=== PATIENT | female | born 1975 | race Caucasian/White ===

== ENCOUNTER 2018-10-08 16:03 | Emergency (ER) | payer SELFPAY ==
[2018-10-08 16:12] VITALS: BP 102/61
[2018-10-08] MEDS ORDERED: LIDOCAINE 1% INJ-PF (10 MG/ML) 30 ML SDV INJ ONE (17:52)
[2018-10-08] MEDS ORDERED: CEFTRIAXONE INJ 1000 MG VIAL IM ONE (17:52)
--- NOTE | 2018-10-08 17:58 | ER Document Report ---
HPI - HPI Time Seen by Provider: 10/08/18 17:36 Pain Level: 4 Notes: 43-year-old female presents to the ED for complaints of right-sided ear and headache that has been occurring intermittently for the last week, states she is recently had a cold, just moved to [place] has not been taking anything for it states the pain has become progressively worse in the ear and has caused her some dizziness as well. Patient does report some sinus congestion. Pain is 4 out of 10, throbbing achy, is not the front of her ear or TMJ. Denies any trauma to the ear. Denies history of my head denies any photosensitivity or phono sensitivity. Eating and drinking without issues. Patient is a smoker. Does not have a primary care provider that she can see for her ear pain. Denies fevers, chills, chest pain,palpitations, shortness of breath, dyspnea, nausea, vomiting, diarrhea, abdominal pain, hematuria,blurred vision, double vision, loss of vision, speech changes, LH, dizziness, syncope, headaches, wheezing, ST, URI, neck pain, weakness, bowel or bladder dysfunction, saddle anesthesia, numbness or tingling in bilateral upper or lower extremities equally, muscle paralysis, weakness in bilateral upper or lower extremities equally or rash. - REPRODUCTIVE Reproductive: DENIES: : - DERM Skin Color: Normal Past Medical History - General Information source: Patient - Social History Smoking Status: Current Every Day Smoker Family History: Reviewed & Not Pertinent Patient has suicidal ideation: No Patient has homicidal ideation: No Renal/ Medical History: Denies: Hx Peritoneal Dialysis Vertical Provider Document - CONSTITUTIONAL Agree With Documented VS: Yes Notes: PHYSICAL EXAMINATION: GENERAL: Well-appearing, well-nourished and in no acute distress. HEAD: Atraumatic, normocephalic. EYES: Pupils equal round and reactive to light, extraocular movements intact, conjunctiva are normal. ENT: Right tympanic membrane with erythema, bulging. TM intact. Right EAC without soft pain, swelling. L TM normal. nares patent, oropharynx clear without exudates. Moist mucous membranes. NECK: Normal range of motion, supple without lymphadenopathy LUNGS: Breath sounds clear to auscultation bilaterally and equal. No wheezes rales or rhonchi. HEART: Regular rate and rhythm without murmurs ABDOMEN: Soft, nontender, nondistended abdomen. No guarding, no rebound. No masses appreciated. Female : deferred Musculoskeletal: Normal range of motion, no pitting or edema. No cyanosis. NEUROLOGICAL: Cranial nerves grossly intact. Normal speech, normal gait. Normal sensory, motor exams PSYCH: Normal mood, normal affect. SKIN: Warm, Dry, normal turgor, no rashes or lesions noted. 23-like and then on the other half of a flight - INFECTION CONTROL TRAVEL OUTSIDE OF THE [place] IN LAST 30 DAYS: No Course - Re-evaluation Re-evalutation: 10/08/18 18:00 43 yr old female presents today with complaints of ear pain and headache from a URI, does not have a pcp in the area to see her. Afebrile vitals stable no distress presentation is most consistent with an acute otitis media. Clinical history as well as exam is most consistent with this diagnosis. Based on history and examination do not suspect an acute meningitis, encephalitis, peritonsillar abscess, or retropharyngeal abscess. Child is otherwise well in appearance, no acute distress. Vitals otherwise within normal limits. The patient will be started on amoxicillin twice a day for 10 days. At this time will discharge with return precautions and follow-up recommendations. Verbal discharge instructions given a the bedside to the parents and opportunity for questions given. Medication warnings reviewed. Parents are in agreement with this plan and has verbalized understanding of return precautions and the need for primary care follow-up in the next 24-72 hours.Denies any fevers or chills. - Vital Signs Vital signs: Temp Pulse Resp BP Pulse Ox 98.6 F 81 16 102/61 99 10/08/18 16:10 10/08/18 16:10 10/08/18 16:10 10/08/18 16:10 10/08/18 16:10 Discharge - Discharge Clinical Impression: RAOM (recurrent acute otitis media) Condition: Stable Disposition: HOME, SELF-CARE Additional Instructions: OTITIS MEDIA: You have a middle ear infection (otitis media). This is usually a complication of a cold or sore throat. The middle ear cavity becomes filled with infection. Pressure and stretching of the ear drum cause pain. Antibiotics are required. A 10 day course is usually prescribed. A decongestant may be recommended if you have a "runny nose." You may need anest hetic drops or other pain medication. A follow-up exam may be recommended to make sure the infection has completely cleared. If the ear begins to drain, it means the ear drum has ruptured. This will usually heal spontaneously. However, it means you should keep the ear dry until re-examined by a doctor. Call the physician or return for examination at once if there is severe headache, stiff neck, confusion, increasing fever, or dizziness. You should improve significantly within two days. If you're not better, call the doctor. AMOXICILLIN: Amoxicillin is a member of the penicillin family. It covers the germs likely to cause ear, bronchial, and urinary infections better than plain penicillin. Amoxicillin can be taken without regard to meals. Nausea after taking the medication is rare, but can occur. Diarrhea can occur, particularly in small children. Vaginal yeast infections and oral thrush in infants are also common. Contact your physician if these problems occur. Allergy to penicillins is common. If you have had an allergic reaction to any drug of the penicillin family, you should never take any other penicillin. Notify your doctor at once if you develop hives, itching, swelling, faintness, or shortness of breath. Less serious side effects can include nausea or diarrhea. USE OF ACETAMINOPHEN (Tylenol): Acetaminophen may be taken for pain relief or fever control. It's much safer than aspirin, offering a wider range of "safe" dosages. It is safe during . Some brand names are Tylenol, Panadol, Datril, Anacin 3, Tempra, and Liquiprin. Acetaminophen can be repeated every four hours. The following are maximum recommended dosages: WEIGHT Dose Drops Elixir Chewable(80mg) (LBS.) drprs=droppers tsp=teaspoon 6 40 mg 0.4 ml (1/2) 6-11 80 mg 0.8 ml (full) tsp 1 tab 12-16 120 mg 1 1/2 drprs 3/4 tsp 1 1/2 tabs 17-23 160 mg 2 drprs 1 tsp 2 tabs 24-30 240 mg 3 drprs 1 1/2 tsp 3 tabs 30-35 320 mg 2 tsp 4 tabs 36-41 360 mg 2 1/4 tsp 4 1/2 tabs 42-47 400 mg 2 1/2 tsp 5 tabs 48-53 480 mg 3 tsp 6 tabs 54-59 520 mg 3 1/4 tsp 6 1/2 tabs 60-64 560 mg 3 1/2 tsp 7 tabs 65-70 600 mg 3 3/4 tsp 7 1/2 tabs 71-76 640 mg 4 tsp 8 tabs 77-82 720 mg 4 1/2 tsp 9 tabs 83-88 800 mg 5 tsp 10 tabs >89 pounds or adults 650 mg to 900 mg Acetaminophen can be repeated every four hours. Maximum dose not to exceed 4000 mg a day. These maximum recommended dosages are slightly higher than the dosages written on the product container, but these dosages are very safe and below the toxic dosage for acetaminophen. FOLLOW-UP CARE: If you have been referred to a physician for follow-up care, call the physicians office for an appointment as you were instructed or within the next two days. If you experience worsening or a significant change in your symptoms, notify the physician immediately or return to the Emergency Department at any time for re-evaluation. Prescriptions: Amoxicillin 1 tab PO TID #30 tab Forms: Return to Work Referrals: PITA IZAGUIRRE MD [ACTIVE STAFF] - Follow up in 3-5 days
== END 2018-10-08 18:45 | disposition home or self-care (01) ==
LOC: ER 16:03
DX: H66.91 Otitis media, unspecified, right ear (principal); H92.01 Otalgia, right ear; R51 Headache; R42 Dizziness and giddiness; R09.81 Nasal congestion; F17.200 Nicotine dependence, unspecified, uncomplicated
CPT/HCPCS: 99282; 96372; J3490; J0696

== ENCOUNTER 2018-12-06 20:47 | Emergency (ER) | payer SELFPAY ==
[2018-12-06 23:26] LABS: HEMOGLOBIN 11.6 g/dL (12.0-15.5); MEAN CORPUSCULAR HEMOGLOBIN 28.9 pg (27.0-33.4); MEAN CORPUSCULAR VOLUME 88 fl (80-97); PLATELET COUNT 268 10^3/uL (150-450); RED CELL DISTRIBUTION WIDTH 13.3 % (11.5-14.0); WHITE BLOOD COUNT 3.3 10^3/uL (4.0-10.5)
--- NOTE | 2018-12-06 23:37 | EKG REPORT ---
SEVERITY:- OTHERWISE NORMAL ECG - SINUS RHYTHM LEFT AXIS DEVIATION : Confirmed by: Joni Puckett MD 06-Dec-2018 23:37:06
[2018-12-06 23:43] LABS: ABSOLUTE LYMPHOCYTES# (MANUAL) 2.6 10^3/uL (0.5-4.7); ABSOLUTE MONOCYTES # (MANUAL) 0.3 10^3/uL (0.1-1.4); ABSOLUTE NEUTROPHILS# (MANUAL) 0.3 10^3/uL (1.7-8.2); BASOPHILS % (MANUAL) 0 % (0-2); EOSINOPHILS % (MANUAL) 2 % (0-6); MONOCYTES % (MANUAL) 9 % (3-13); SEGMENTED NEUTROPHILS % (MAN) 10 % (42-78); TOTAL CELLS COUNTED 100
[2018-12-06 23:44] LABS: HYPOCHROMASIA 1+; PLATELET COMMENT ADEQUATE; POIKILOCYTOSIS SLIGHT
[2018-12-06 23:45] LABS: LYMPHOCYTES % (MANUAL) 77 % (13-45)
[2018-12-06 23:59] LABS: ALANINE AMINOTRANSFERASE 32 U/L (9-52); ALBUMIN 3.7 g/dL (3.5-5.0); ALKALINE PHOSPHATASE 55 U/L (38-126); ANION GAP 8 (5-19); ASPARTATE AMINO TRANSFERASE 51 U/L (14-36); BILIRUBIN,DIRECT 0.5 mg/dL (0.0-0.4); BILIRUBIN,TOTAL 1.2 mg/dL (0.2-1.3); BLOOD UREA NITROGEN 23 mg/dL (7-20); CALCIUM 9.1 mg/dL (8.4-10.2); CARBON DIOXIDE 29 mmol/L (22-30); CHLORIDE 101 mmol/L (98-107); GLUCOSE 92 mg/dL (75-110); POTASSIUM 5.2 mmol/L (3.6-5.0); SODIUM 138.1 mmol/L (137-145); TOTAL PROTEIN 6.7 g/dL (6.3-8.2)
[2018-12-07 00:11] LABS: NT PRO BNP 112 pg/mL (<125)
[2018-12-07 00:17] LABS: TROPONIN I < 0.012 ng/mL
--- NOTE | 2018-12-07 01:29 | ER Document Report ---
ED General - General Chief Complaint: Leg Swelling Stated Complaint: Palpitations Time Seen by Provider: 12/06/18 23:00 Primary Care Provider: NICA HUGGINS MD [ACTIVE STAFF] - Follow up in 3-5 days Notes: Patient is a 43-year-old female with a past medical history of chronic lymphedema who presents with concerns of intermittent palpitations for the past 24 hours. Contrary to initial triage note the patient denies chest pain. States that there is a fluttering sensation that she often feels in her upper ch est and throat. Symptoms come and go last for several moments. No obvious exacerbating or alleviating factor. Regards symptoms as being mild to moderate. Denies a history of similar symptoms in the past. Denies any shortness of breath, pleuritic pain or use of supplemental estrogen. No history of DVT or pulmonary embolus. Denies any symptoms in regards to palpitations at the time of my evaluation. Has not seen her primary care physician regarding today's concerns. She also complains that she feels like her chronic lymphedema in the bilateral lower extremities is worse than normal and is wondering if I have any suggestions regarding management of her chronic lymphedema. TRAVEL OUTSIDE OF THE [place] IN LAST 30 DAYS: No - Related Data Allergies/Adverse Reactions: No Known Allergies Allergy (Unverified 10/08/18 16:04) Past Medical History - General Information source: Patient - Social History Smoking Status: Current Every Day Smoker Chew tobacco use (# tins/day): No Frequency of alcohol use: None Drug Abuse: None Family History: Reviewed & Not Pertinent Patient has suicidal ideation: No Patient has homicidal ideation: No Renal/ Medical History: Denies: Hx Peritoneal Dialysis Past Surgical History: Reports: Hx Section, Hx Tonsillectomy Review of Systems - Review of Systems Notes: Constitutional: Negative for fever. HENT: Negative for sore throat. Eyes: Negative for visual changes. Cardiovascular: Negative for chest pain. Positive palpitations Respiratory: Negative for shortness of breath. Gastrointestinal: Negative for abdominal pain, vomiting or diarrhea. Genitourinary: Negative for dysuria. Musculoskeletal: Negative for back pain. Positive for chronic swelling to the bilateral lower extremities Skin: Negative for rash. Neurological: Negative for headaches, weakness or numbness. 10 point ROS negative except as marked above and in HPI. Physical Exam - Vital signs Vitals: Temp Pulse Resp BP Pulse Ox 98.1 F 83 16 107/57 L 100 12/06/18 20:53 12/06/18 20:53 12/06/18 20:53 12/06/18 20:53 12/06/18 20:53 Interpretation: Normal Notes: PHYSICAL EXAMINATION: GENERAL: Well-appearing, well-nourished and in no acute distress. HEAD: Atraumatic, normocephalic. EYES: Pupils equal round and reactive to light, extraocular movements intact, sclera anicteric, conjunctiva are normal. ENT: nares patent, oropharynx clear without exudates. Moist mucous membranes. NECK: Normal range of motion, supple without lymphadenopathy LUNGS: Breath sounds clear to auscultation bilaterally and equal. No wheezes rales or rhonchi. HEART: Regular rate and rhythm without murmurs ABDOMEN: Soft, nontender, normoactive bowel sounds. No guarding, no rebound. No masses appreciated. EXTREMITIES: Normal range of motion, 2+ pitting edema in the bilateral lower extremities that is equal and symmetric. No cyanosis. NEUROLOGICAL: No focal neurological deficits. Moves all extremities spontaneously and on command. PSYCH: Normal mood, normal affect. SKIN: Warm, Dry, normal turgor, no rashes or lesions noted. Course - Re-evaluation Re-evalutation: 12/07/18 01:29 Patient presents with palpitations but is in no acute distress. Vitals within normal limits at time of arrival. EKG unremarkable with a normal sinus rhythm. Laboratories are unremarkable. Patient denies any chest pain, shortness of breath, or vomiting. At this time based on exam and history do not suspect a new onset arrhythmia, ACS, acute pulmonary embolus, aortic dissection. Patient encouraged to follow-up with their primary care physician as well as cardiology and a referral has been provided. Patient did also mention that she has chronic lymphedema and feels like it is more swollen than normal. This is equal and symmetric and the patient admits that this is long-standing, chronic. Do not clinically suspect DVT. I have advised compression stockings at home as well as outpatient follow-up. At this time will discharge with return precautions and follow-up recommendations. Verbal discharge instructions given a the bedside and opportunity for questions given. Medication warnings reviewed. Patient is in agreement with this plan and has verbalized understanding of return precautions and the need for primary care follow-up in the next 24-72 hours. - Vital Signs Vital signs: Temp Pulse Resp BP Pulse Ox 98.1 F 83 11 L 103/57 L 99 12/06/18 20:53 12/06/18 20:53 12/07/18 01:38 12/07/18 01:38 12/07/18 01:38 - Laboratory Result Diagrams: 12/06/18 23:16 12/06/18 23:16 Laboratory results interpreted by me: 12/06/18 12/06/18 23:16 23:16 WBC 3.3 L Hgb 11.6 L Hct 35.0 L Seg Neuts % (Manual) 10 L Lymphocytes % (Manual) 77 H Abs Neuts (Manual) 0.3 L Potassium 5.2 H BUN 23 H Direct Bilirubin 0.5 H AST 51 H - EKG Interpretation by Me Additional EKG results interpreted by me: 12/07/18 01:28 Sinus rhythm, rate 86. No ST elevations or depressions. QTC is 474. No ectopic beats. Discharge - Discharge Clinical Impression: Palpitations, Lymphedema Condition: Good Disposition: HOME, SELF-CARE Additional Instructions: Please follow-up with your primary care doctor or a vending machine attendant regarding your palpitations. Return if you develop chest pain, shortness of breath, pass out, or have any other symptoms that are worrisome to you. Referrals: NICA HUGGINS MD [ACTIVE STAFF] - Follow up in 3-5 days
[2018-12-07 01:40] VITALS: BP 103/57
[2018-12-07 12:50] LABS: PATH REVIEW PATHOLOGIST REVIEWED
== END 2018-12-07 01:42 | disposition home or self-care (01) ==
LOC: ER 20:47
DX: R00.2 Palpitations (principal); I89.0 Lymphedema, not elsewhere classified; F17.200 Nicotine dependence, unspecified, uncomplicated
CPT/HCPCS: 36415; 80053; 83880; 84484; 85025; 93005; 93010; 99285